=== PATIENT | female | born 1965 | race Caucasian/White ===

== ENCOUNTER 2019-12-16 14:50 | Outpatient (CLI) | payer BC, SELFPAY ==
[2019-12-16 15:33] LABS: Complement C3 111 mg/dL (88-165)
[2019-12-18 21:18] LABS: SS-A <1.0; SS-B <1.0
[2019-12-20 05:01] LABS: Lupus dRVVT 1:1 Mix Interpreta Not Indicated; Lupus dRVVT Screen 34 sec (<=45); PTT-LA Screen 34 sec (<=40)
[2019-12-21 15:46] LABS: Anti Cardio Antibody IgM <12 MPL (<=12); Anti Cardiolipin Antibody IgA <11 APL (<=11); Anti Cardiolipin Antibody IgG <14 GPL (<=14)
[2019-12-21 20:26] LABS: SM Antibody <1.0; SM/RNP Antibody <1.0
== END 2019-12-16 14:51 | disposition home or self-care (01) ==
LOC: ANHLAB 14:52
PROVIDERS: PCP Nurse Practitioner Psychiatric/Mental Health; Visit Provider Internal Medicine
DX: M19.90 Unspecified osteoarthritis, unspecified site (principal)
CPT/HCPCS: 36415; 85613; 85730; 86147; 86160; 86225; 86235

== ENCOUNTER 2020-01-20 10:08 | Outpatient (CLI) | payer BC, SELFPAY ==
[2020-01-20 10:43] LABS: Hematocrit 37.9 % (37.0-47.0); Hemoglobin 12.1 g/dL (12.0-15.0); Mean Corpuscular HGB Conc 31.9 g/dl (32-36); Mean Corpuscular Hemoglobin 29.8 pg (26-34); Mean Corpuscular Volume 93.3 fl (80-100); Mean Platelet Volume 9.7 fl (7.4-10.4); Platelet Count Result 281 k/mm3 (150-375); Red Blood Count 4.06 M/mm3 (4.2-5.4); Red Cell Distribution Width 13.5 % (11.5-14.5); White Blood Count 9.7 K/mm3 (4.5-10.0)
[2020-01-20 13:29] LABS: Complement C3 143 mg/dL (88-165); Erythrocyte Sedimentation Rate 23 mm/hr (0-20); Rheumatoid Factor < 8.6 IU/ML (<12)
[2020-01-20 13:35] LABS: Alanine Aminotransferase 30 U/L (4-35); Albumin Level 4.6 g/dL (3.5-5.1); Alkaline Phosphatase 88 U/L (38-126); Aspartate Amino Transferase 27 U/L (14-36); Bilirubin,Total 0.2 mg/dL (0.2-1.3); Blood Urea Nitrogen 21 mg/dL (7-17); CRP < 0.5 mg/dL (<1.0); Calcium 9.6 mg/dL (8.4-10.2); Carbon Dioxide 27 mmol/L (22-30); Chloride 102 mmol/L (98-107); Creatine Kinase 111 U/L (30-135); Estimated Glomerular Filt Rate 52; Glucose 96 mg/dL (65-105); Lactate Dehydrogenase 367 U/L (313-618); Potassium 4.5 mmol/L (3.4-5.0); Sodium 138 mmol/L (137-145)
[2020-01-24 04:13] LABS: Thyroglobulin 7.9 ng/mL (2.8-40.9); Thyroglobulin Antibodies <1 IU/mL (<=1); Thyroid Peroxidase Antibodies <1 IU/mL (<9)
[2020-01-24 23:08] LABS: Albumin 4.5 g/dL (3.8-4.8); Alpha 1 Globulin 0.2 g/dL (0.2-0.3); Alpha 2 Globulin 0.7 g/dL (0.5-0.9); Beta 1 Globulin 0.4 g/dL (0.4-0.6); Gamma Globulin 0.7 g/dL (0.8-1.7); Protein, Total 6.8 g/dL (6.1-8.1)
[2020-01-25 13:52] LABS: Anti Cyclic Citrullinated Pept <16 Units (<20)
[2020-01-26 13:19] LABS: Aldolase 4.2 U/L (<=8.1)
[2020-01-28 03:59] LABS: Angiotensin Converting Enzyme 30 U/L (9-67)
== END 2020-01-20 10:09 | disposition home or self-care (01) ==
PROVIDERS: Internal Medicine; PCP Nurse Practitioner Psychiatric/Mental Health; Visit Provider Internal Medicine Hematology & Oncology
DX: M19.90 Unspecified osteoarthritis, unspecified site (principal)
CPT/HCPCS: 36415; 80053; 82085; 82164; 82397; 82550; 83615; 84155; 84165; 84182; 84432; 85027; 85652; 86038; 86039; 86140; 86160; 86200; 86235; 86376; 86430; 86800